=== PATIENT | male | born 1975 | race Caucasian/White ===

== ENCOUNTER 2017-02-09 07:21 | Inpatient (IN) | payer SELFPAY ==
[~2017-02-09] VITALS: Ht 185.4 cm; Wt 72.7 kg
[2017-02-09] MEDS ORDERED: SOD CHLORIDE 0.9% 1,000 ML IV STA (07:26)
[2017-02-09] MEDS ORDERED: ONDANSETRON 4 MG INJ IV STA ×2 (07:26→10:47)
[2017-02-09] MEDS ORDERED: KETOROLAC 30 MG INJ IV STA (07:26)
--- NOTE | 2017-02-09 07:34 | ERA ---
ER Documentation Chief Complaint Date/Time DATE: 02/09/17 TIME: 07:32 Chief Complaint kidney stone HPI This is a 41-year-old male with a past medical history of kidney stones sp lithotripsy in the past who is presenting with concern of a kidney stone. He developed hematuria last night, and then developed severe right sided flank pain radiating into his groin, associated with NBNB vomiting. He endorses an episode of diarrhea 2 days ago that has since resolved. He went to an urgent care who prescribed him lomotil and cipro. He was diaphoretic upon arrival. The patient denies feeling sick otherwise. The patient denies fever or chills. The patient has had no headache or vision changes. The patient denies lightheadedness or dizziness. The patient has had no chest pain or shortness of breath or trouble breathing. The patient has had no focal deficits. The patient has had no weakness or numbness or tingling to the face or extremities. ROS All systems reviewed and are negative except as per history of present illness. Medications Home Meds Reported Medications Diphenoxylate HCl/Atropine (Lomotil 2.5-0.025 mg Tablet) 1 Each Tablet, 1 TAB PO Q6H Y for DIARRHEA, TAB 02/09/17 Ciprofloxacin Hcl* (Ciprofloxacin Hcl*) 500 Mg Tablet, 500 MG PO BID, #14 TAB 02/09/17 Allergies Allergies: Coded Allergies: No Known Allergy (Unverified , 02/09- PER [facility]ALL, 02/09/17) PMhx/Soc Hx Miscellaneous Medical Probl: Yes (kidney stones) FmHx Family History: No diabetes Physical Exam Vitals Vital Signs Date Time Temp Pulse Resp B/P Pulse Ox O2 Delivery O2 Flow Rate FiO2 02/09/17 10:18 66 13 120/80 93 Room Air 02/09/17 08:15 98.2 89 27 113/74 100 02/09/17 08:15 98.2 89 27 113/74 100 Room Air Physical Exam Const: mild distress, well-developed, well-nourished, diaphoretic Head: Atraumatic Eyes: Normal Conjunctiva. Extraocular movements intact. ENT: Normal External Ears, Nose and Mouth. Neck: Full range of motion. ~ No meningismus. Resp: Clear to auscultation bilaterally Cardio: Regular rate and rhythm, no murmurs Abd: Soft, non tender, non distended. right CVA tenderness. Normal bowel sounds Skin: No petechiae or rashes Back: No midline tenderness Ext: No cyanosis, or edema Neur: Awake and alert, oriented 4. Cranial nerves intact. No facial droop. Normal strength and sensation in all extremities. Coordination with finger to nose normal. Psych: Normal Mood and Affect Result Diagram: 02/09/17 0744 02/09/17 0744 Results 24 hrs Laboratory Tests Test 02/09/17 07:44 02/09/17 08:59 White Blood Count 7.310^3/ul Red Blood Count 4.8810^6/ul Hemoglobin 15.0g/dl Hematocrit 43.8% Mean Corpuscular Volume 89.8fl Mean Corpuscular Hemoglobin 30.7pg Mean Corpuscular Hemoglobin Concent 34.2g/dl Red Cell Distribution Width 12.4% Platelet Count 22433^3/UL Mean Platelet Volume 10.0fl Neutrophils % 46.2% Lymphocytes % 40.8% Monocytes % 9.0% Eosinophils % 3.1% Basophils % 0.5% Nucleated Red Blood Cells % 0.0/100WBC Neutrophils # 3.410^3/ul Lymphocytes # 3.010^3/ul Monocytes # 0.710^3/ul Eosinophils # 0.210^3/ul Basophils # 0.010^3/ul Nucleated Red Blood Cells # 0.010^3/ul Sodium Level 139mmol/L Potassium Level 3.8mmol/L Chloride Level 107mmol/L Carbon Dioxide Level 21mmol/L Anion Gap 15 Blood Urea Nitrogen 16mg/dl Creatinine 1.10mg/dl Glucose Level 117mg/dl Calcium Level 9.8mg/dl Total Bilirubin 0.5mg/dl Direct Bilirubin 0.00mg/dl Indirect Bilirubin 0.5mg/dl Aspartate Amino Transf (AST/SGOT) 23IU/L Alanine Aminotransferase (ALT/SGPT) 30IU/L Alkaline Phosphatase 73IU/L Total Protein 7.0g/dl Albumin 4.4g/dl Globulin 2.60g/dl Albumin/Globulin Ratio 1.69 Lipase 810U/L Urine Color YELLOW Urine Clarity SLIGHTLY CLOUDY Urine pH 6.0 Urine Specific [place] 1.018 Urine Ketones TRACEmg/dL Urine Nitrite NEGATIVEmg/dL Urine Bilirubin NEGATIVEmg/dL Urine Urobilinogen NEGATIVEmg/dL Urine Leukocyte Esterase NEGATIVELeu/ul Urine Microscopic RBC > 182/HPF Urine Microscopic WBC 7/HPF Urine Bacteria FEW/HPF Urine Mucus FEW/HPF Urine Hemoglobin 3+mg/dL Urine Glucose NEGATIVEmg/dL Urine Total Protein 1+mg/dl Current Medications Medications (Trade) Dose Ordered Sig/Nataliia Route PRN Reason Start Time Stop Time Status Last Admin Dose Admin Sodium Chloride (NS) 1,000 ml @ 1,000 mls/hr Q1H STAT IV 02/09/17 07:26 02/09/17 08:25 DC 02/09/17 07:40 Ondansetron HCl (Zofran Inj) 4 mg ONCE STAT IV 02/09/17 07:26 02/09/17 07:28 DC 02/09/17 07:40 Ketorolac Tromethamine (Toradol) 30 mg ONCE STAT IV 02/09/17 07:26 02/09/17 07:28 DC 02/09/17 07:40 Fentanyl (Sublimaze) 100 mcg STK-MED ONCE .ROUTE 02/09/17 09:35 02/09/17 09:36 DC Fentanyl (Sublimaze) 75 mcg Q3H PRN IV PAIN 02/09/17 10:00 02/09/17 13:00 DC Ondansetron HCl (Zofran Inj) 4 mg ONCE STAT IV 02/09/17 10:47 02/09/17 10:49 DC 02/09/17 11:12 Hydromorphone HCl 0.5 mg 0.5 mg ONCE STAT IV 02/09/17 10:47 02/09/17 10:49 DC 02/09/17 11:12 Sodium Chloride (NS) 1,000 ml @ 80 mls/hr [id number] IV 02/09/17 12:53 02/10/17 01:22 02/09/17 13:21 Procedures/MDM MDM Patient's presentation warrants further investigation. The patient has a history of kidney stones and has symptoms consistent with a kidney stone. Blood work and urine testing will be obtained. The patient was given IV fluids and Toradol on initial presentation. LABS The patient's blood work was obtained and reviewed. The patient seemed shows no leukocytosis or left shift. The patient is afebrile, and I do not suspect a systemic infection. The patient is not anemic today. The patient's platelet count is unremarkable. The patient's CMP shows no signs of metabolic or electrolyte abnormality. The patient has normal renal and hepatic function testing. It is worth noting that the patient's lipase was 810. The patient did not have any left upper quadrant tenderness. The patient will be given IV fluids with the concern of a kidney stone. This will also help improve pain related to pancreatitis. The patient's urinalysis shows significant hematuria that is consistent with a kidney stone, which also correlates with his clinical exam. IMAGING CT A/P without contrast IMPRESSION: 1. Moderate to severe right hydronephrosis secondary to a 4 mm calculus in the mid right ureter at the level of L4. 2. A punctate 2 mm nonobstructing intrarenal calculus is seen in the inferior right kidney. 3. Stool is seen in the ascending colon and rectum. 4. A small gallstone is seen within an otherwise unremarkable gallbladder. Electronically viewed and signed by Physician Ron on 02/09/2017 11: 56 TREATMENT/DISPOSITION The patient does have symptoms consistent with obstructive nephrolithiasis. I do not see signs of infection at this time. Unfortunately, the patient had intractable pain associated with this. After Toradol, he was given fentanyl and ultimately he was given 2 doses of Dilaudid which only provided temporary relief. IV fluids will be continued in this patient. The patient does have an elevated lipase. He was also found to have gallstones on his CAT scan. There is no evidence of cholecystitis, but biliary colic may also be a possibility. If the patient does have choledocholithiasis, there could be a gallstone pancreatitis as well. I have lower suspicion for these etiologies given the findings for nephrolithiasis. The patient will be admitted to the panel service as per his insurance status. Dr. Hummel accepted the patient to a [facility] floor at 12:49 PM on February 09, 2017 Dr. Dias, the on-call urologist, was called to discuss the case. He will evaluate the patient in the hospital. Departure Diagnosis: Primary Impression: Obstructive nephropathy Additional Impressions: Hydronephrosis Qualified Code: N13.2 - Hydronephrosis with urinary obstruction due to renal calculus Pancreatitis Qualified Code: K85.90 - Acute pancreatitis, unspecified complication status, unspecified pancreatitis type Gall bladder stones Condition: SEAN Leyva MD Feb 09, 2017 07:34
[2017-02-09 08:01] LABS: BASOPHILS % 0.5 % (0.0-2.0); EOSINOPHILS # 0.2 10^3/ul (0.0-0.5); EOSINOPHILS % 3.1 % (0.0-7.0); HEMATOCRIT 43.8 % (42.0-52.0); LYMPHOCYTES % 40.8 % (15.0-51.0); MEAN CORPUSCULAR HEMOGLOBIN 30.7 pg (29.0-33.0); MEAN CORPUSCULAR HGB CONC 34.2 g/dl (32.0-37.0); MEAN CORPUSCULAR VOLUME 89.8 fl (82.0-101.0); MONOCYTE # 0.7 10^3/ul (0.3-0.9); NEUTROPHIL # 3.4 10^3/ul (1.6-7.5); NEUTROPHILS % 46.2 % (39.0-77.0); PLATELET COUNT 300 10^3/UL (140-415); RED BLOOD COUNT 4.88 10^6/ul (4.70-6.10); RED CELL DISTRIBUTION WIDTH 12.4 % (11.5-14.5); WHITE BLOOD COUNT 7.3 10^3/ul (4.8-10.8)
[2017-02-09 08:15] VITALS: TEMP 98.2
[2017-02-09 08:25] LABS: ALBUMIN 4.4 g/dl (3.3-4.9); ALBUMIN/GLOBULIN RATIO 1.69; BILIRUBIN,INDIRECT 0.5 mg/dl (0-1.1); BILIRUBIN,TOTAL 0.5 mg/dl (0.2-1.3); CALCIUM 9.8 mg/dl (8.4-10.2); CREATININE 1.1 mg/dl (0.61-1.24); POTASSIUM 3.8 mmol/L (3.5-5.1)
[2017-02-09] MEDS ORDERED: FENTAnyl 50 MCG/ML VIAL ONE (09:35)
[2017-02-09] MEDS ORDERED: FENTAnyl 50 MCG/ML VIAL IV PRN (10:00)
[2017-02-09 10:19] LABS: ADD UMIC YES; UR ASCORBIC ACID NEGATIVE (NEGATIVE); UR BACTERIA FEW /HPF (NONE SEEN); UR BILIRUBIN (Dip) NEGATIVE (NEGATIVE); UR BLOOD (Dip) 3+ mg/dL (NEGATIVE); UR CLARITY SLIGHTLY CLOUDY (CLEAR); UR COLOR YELLOW (YELLOW); UR GLUCOSE (Dip) NEGATIVE (NEGATIVE); UR KETONES (Dip) TRACE mg/dL (NEGATIVE); UR LEUKOCYTE ESTERASE (Dip) NEGATIVE Leu/ul (NEGATIVE); UR MUCUS FEW /HPF (NONE SEEN); UR NITRITE (Dip) NEGATIVE (NEGATIVE); UR RBC > 182 /HPF (0-5); UR SPECIFIC GRAVITY (Dip) 1.018 (1.003-1.030); UR TOTAL PROTEIN (Dip) 1+ mg/dl (NEGATIVE); UR UROBILINOGEN (Dip) NEGATIVE (NEGATIVE)
[2017-02-09] MEDS ORDERED: HYDROmorphONE 1 MG/ML SYG IV STA ×3 (10:47→13:09)
--- NOTE | 2017-02-09 11:56 | RADRPT ---
PROCEDURE: CT abdomen and pelvis without contrast. CLINICAL INDICATION: R flank and RLQ pain with gross hematuria TECHNIQUE: CT scan of the abdomen and pelvis without contrast was performed on a multi-slice CT [facility]. The patient was scanned without intravenous contrast. 3-D sagittal and coronal reformatted images were obtained from the axial source images. CTDI: 6.43 and DLP: 379.6 One or more of the following dose reduction techniques were used: Automated exposure control. Adjustment of the mA and/or kV according to patient's size. Use of iterative reconstruction technique. COMPARISON: None. FINDINGS: Incidental images through the lung bases reveal no evidence of focal basilar consolidation or pleura l effusion. The liver, spleen, pancreas and adrenal glands are unremarkable for noncontrast study. A small galls tone is seen within an otherwise unremarkable gallbladder. There is moderate to severe right hydronephrosis secondary to a 4 mm calculus in the mid right urete r at the level of L4. A punctate 2 mm nonobstructing calculus is seen in the inferior right kidney. The left kidney is unremarkable. No significant retroperitoneal adenopathy is identified. The abdominal aorta is intact. The stomach is grossly unremarkable. There is no evidence of small bowel obstruction, appendicitis o r diverticulitis. Stool is seen in the ascending colon and rectum.. No free fluid or free intraperi toneal air is identified. Evaluation of the osseous structures reveals no acute change. IMPRESSION: 1. Moderate to severe right hydronephrosis secondary to a 4 mm calculus in the mid right ureter at the level of L4. 2. A punctate 2 mm nonobstructing intrarenal calculus is seen in the inferior right kidney. 3. Stool is seen in the ascending colon and rectum. 4. A small gallstone is seen within an otherwise unremarkable gallbladder. RPTAT:AAJJ Physician Ron Date Time Electronically viewed and signed by Physician Ron on 02/09/2017 11:56 MARY BETH/
[2017-02-09] MEDS ORDERED: CIPR500T4 PO (12:08)
[2017-02-09] MEDS ORDERED: DIPH1TAB PO (12:08)
[2017-02-09] MEDS ORDERED: SOD CHLORIDE 0.9% 1,000 ML IV SCH (12:53)
[2017-02-09] MEDS ORDERED: ONDANSETRON 4 MG INJ IV PRN (13:00)
[2017-02-09] MEDS ORDERED: ACETAMINOPHEN 325 MG TAB PO PRN (13:00)
[2017-02-09 14:27] VITALS: Ht 185.4 cm; Wt 72.7 kg
[2017-02-09] MEDS ORDERED: TAMSULOSIN (SR) 0.4 MG CAP PO ONE (15:00)
[2017-02-09] MEDS: SOD CHLORIDE 0.9% 1,000 ML IV SCH ×2 (15:00→20:52)
[2017-02-09] MEDS ORDERED: NACL 0.9% 3 ML SYG IV SCH (15:00)
[2017-02-09 15:34] LABS: CHOL/HDL RATIO 1.7 RATIO; CHOLESTEROL 185 mg/dl (100-200); HDL CHOLESTEROL 105 mg/dl (27-67); TRIGLYCERIDES 80 mg/dl (0-149)
[2017-02-09 15:53] LABS: C-REACTIVE PROTEIN < 0.5 mg/dl (0.0-0.9)
[2017-02-09] MEDS ORDERED: LORAZEPAM 1 MG TAB PO PRN (16:00)
[2017-02-09] MEDS ORDERED: LORAZEPAM 2 MG INJ IV PRN (16:00)
--- NOTE | 2017-02-09 16:02 | HP ---
Date/Time of Note Date/Time of Note DATE: 02/09/17 TIME: 15:55 Assessment/Plan VTE Prophylaxis VTE Prophylaxis Intervention: LMWH Lines/Catheters IV C[facility]ter Type [facility]): Peripheral IV Assessment/Plan Chief Complaint/Hosp Course Patient is a 41-year-old male with a past medical history of kidney stones presents to [facility] for right flank pain found to have 4 mm obstructing kidney stone and 2 mm nonobstructing kidney stone Assessment Obstructing nephrolithiasis, 4 mm Nonobstructing nephrolithiasis, 2 mm Hematuria Right flank pain Tobacco use elevated lipase Plan -Urology has been consulted, spoke to urologist over the phone, stated to allow stone to pass for now, if pain worsens intervention will be done. -Flomax, copious fluids, pain control -Urology stated no follow-up imaging is necessary -Patient is pain-free, strainer will be available at bedside -Patient did have elevated lipase, however no signs or symptoms of pancreatitis , however will be conservative and continue fluids and obtain CRP, will trend, will start with clears diet for now. Problems: HPI/ROS Admit Date/Time Admit Date/Time Feb 09, 2017 at 12:55 Hx of Present Illness Patient is a 41-year-old male with a past medical history of kidney stones who presents to [facility] for right flank pain, found to have obstructing kidney stone in the right ureter. Patient states that he was urinating blood last night and developed severe right-sided flank pain with nausea and vomiting. Patient states that the pain continued which is why he came to the ED. Patient has a history of kidney stones with lithotripsy in the past. Currently patient is pain-free, denies fever, chills, headache, dizziness , chest pain, shortness of breath. PMH: Kidney stones PSH: None Social: Smoker, daily alcohol, marijuana use Meds: None PMH/Family/Social Social History Smoking Status: Current every day smoker Exam/Review of Systems Vital Signs Vitals Vital Signs Date Time Temp Pulse Resp B/P Pulse Ox O2 Delivery O2 Flow Rate FiO2 02/09/17 13:34 67 118/89 96 Room Air 02/09/17 10:18 13 02/09/17 08:15 98.2 Exam Exam Physical exam General: Patient is laying in bed and answers questions appropriately Mentation: Patient is alert and oriented 4, Head: Normocephalic atraumatic Eyes: EOMI, pupils reactive to light Neck: Supple, nontender, midline Respiratory: Clear to auscultation bilaterally Cardiovascular: regular rate, no obvious murmurs Gastrointestinal: non-tender to palpation, bowel sounds heard. : very mild tenderness on R flank Neurological: Moves all extremities spontaneously Skin: No new skin lesions Labs Result Diagram: 02/09/17 0744 02/09/17 0744 Medications Medications Current Medications Sodium Chloride (NS) 1,000 ml @ 80 mls/hr [id number] IV Last administered on 02/09t 13:21; Admin Dose 80 MLS/HR; Start 02/09/17 at 12:53; Stop 02/10/17 at 01: 22 Tamsulosin HCl 0.4 mg 0.4 mg HS PO ; Start 02/10/17 at 21:00 Sodium Chloride (NS) 1,000 ml @ 150 mls/hr Q6H40M IV ; Start 02/09/17 at 15:00 Ondansetron HCl (Zofran Inj) 4 mg Q6H PRN IV NAUSEA AND/OR VOMITING; Start at 15:00 Hydromorphone HCl (Dilaudid) 0.5 mg Q2 PRN IV SEVERE PAIN LEVEL 7-10; Start at 15:00 Pantoprazole (Protonix Iv) 40 mg DAILY@06 IV ; Start 02/10/17 at 06:00 Enoxaparin Sodium (Lovenox) 40 mg DAILY SC ; Start 02/10/17 at 09:00 BRIGETTE RUSS Feb 09, 2017 16:02
[2017-02-09 19:47] VITALS: BP 115/70; PULSE 70; RESP 18
[2017-02-09] MEDS: HYDROmorphONE 1 MG/ML SYG IV PRN (23:20)
[2017-02-10] MEDS: SOD CHLORIDE 0.9% 1,000 ML IV SCH ×4 (03:11→21:17)
[2017-02-10] MEDS: HYDROmorphONE 1 MG/ML SYG IV PRN ×6 (03:11→21:16)
[2017-02-10] MEDS: PANTOPRAZOLE 40 MG INJ IV SCH (05:06)
[2017-02-10 05:11] LABS: BASOPHILS % 0.3 % (0.0-2.0); EOSINOPHILS # 0.2 10^3/ul (0.0-0.5); EOSINOPHILS % 2.1 % (0.0-7.0); HEMATOCRIT 36.3 % (42.0-52.0); HEMOGLOBIN 12.1 g/dl (14.0-18.0); LYMPHOCYTES # 2.2 10^3/ul (0.8-2.9); LYMPHOCYTES % 29.4 % (15.0-51.0); MEAN CORPUSCULAR HEMOGLOBIN 31.2 pg (29.0-33.0); MEAN CORPUSCULAR HGB CONC 33.3 g/dl (32.0-37.0); MEAN CORPUSCULAR VOLUME 93.6 fl (82.0-101.0); MONOCYTE # 0.6 10^3/ul (0.3-0.9); NEUTROPHIL # 4.5 10^3/ul (1.6-7.5); NEUTROPHILS % 60.1 % (39.0-77.0); PLATELET COUNT 188 10^3/UL (140-415); RED BLOOD COUNT 3.88 10^6/ul (4.70-6.10); RED CELL DISTRIBUTION WIDTH 12.5 % (11.5-14.5); WHITE BLOOD COUNT 7.5 10^3/ul (4.8-10.8)
[2017-02-10 05:47] LABS: ALBUMIN/GLOBULIN RATIO 1.11; BILIRUBIN,INDIRECT 0.5 mg/dl (0-1.1); BILIRUBIN,TOTAL 0.5 mg/dl (0.2-1.3); CALCIUM 8.6 mg/dl (8.4-10.2); CREATININE 1.51 mg/dl (0.61-1.24); POTASSIUM 4.2 mmol/L (3.5-5.1); TOTAL PROTEIN 5.7 g/dl (6.1-8.1)
[2017-02-10 07:29] VITALS: BP 125/82; RESP 22
[2017-02-10] MEDS ORDERED: ENOXAPARIN 40 MG/0.4 ML SYG SC SCH (09:00)
[2017-02-10] MEDS: ONDANSETRON 4 MG INJ IV PRN ×2 (09:14→14:28)
[2017-02-10] MEDS: oxyCODONE 5 MG TAB PO PRN ×3 (10:13→23:49)
--- NOTE | 2017-02-10 12:28 | PN ---
Date/Time of Note Date/Time of Note DATE: 02/10/17 TIME: 12:25 Assessment/Plan VTE Prophylaxis VTE Prophylaxis Intervention: SCD's Lines/Catheters IV [facility]ter Type (from [facility]): Peripheral IV Urinary Cath still in place: No Assessment/Plan Chief Complaint/Hosp Course Patient is a 41-year-old male with a past medical history of kidney stones presents to [facility] for right flank pain found to have 4 mm obstructing kidney stone and 2 mm nonobstructing kidney stone Assessment Obstructing nephrolithiasis, 4 mm Nonobstructing nephrolithiasis, 2 mm Hematuria Right flank pain Tobacco use elevated lipase Plan -Urology has been consulted, originally wanted to conservatively treat, however due to increase in patient's pain, urology will consider lithotripsy tomorrow if pain continues. Pain likely 2/2 to volume hydration and stone passing. -JONATHAN, likely 2/2 stone however will watch and consult nephrology -Flomax, copious fluids, pain control -Urology stated no follow-up imaging is necessary, will monitor. -Patient has strainer available at bedside -Patient did have elevated lipase, however no signs or symptoms of pancreatitis , CRP negative for 2 days. Problems: Subjective 24 Hr Interval Summary Free Text/Dictation patient has severe pain on the R flank, moving around since last night. Exam/Review of Systems Vital Signs Vitals Vital Signs Date Time Temp Pulse Resp B/P Pulse Ox O2 Delivery O2 Flow Rate FiO2 02/10/17 07:29 98.1 77 22 125/82 99 02/09/17 19:47 Room Air Intake and Output 02/09/17 02/09/17 02/10/17 15:00 23:00 07:00 Intake Total 3000 ml 1360 ml 2300 ml Output Total 300 ml 350 ml 1800 ml Balance 2700 ml 1010 ml 500 ml Exam Physical exam General: Patient is moving around in bed, in pain Mentation: Patient is alert and oriented 4, Head: Normocephalic atraumatic Eyes: EOMI, pupils reactive to light Neck: Supple, nontender, midline Respiratory: Clear to auscultation bilaterally Cardiovascular: regular rate, no obvious murmurs Gastrointestinal: non-tender to palpation, bowel sounds heard. : tenderness on R flank Neurological: Moves all extremities spontaneously Skin: No new skin lesions Results Result Diagram: 02/10/17 0448 02/10/17 0448 Results 24 hrs Laboratory Tests Test 02/10/17 04:48 White Blood Count 7.5 Red Blood Count 3.88 #L Hemoglobin 12.1 L Hematocrit 36.3 L Mean Corpuscular Volume 93.6 Mean Corpuscular Hemoglobin 31.2 Mean Corpuscular Hemoglobin Concent 33.3 Red Cell Distribution Width 12.5 Platelet Count 188 # Mean Platelet Volume 10.0 Neutrophils % 60.1 Lymphocytes % 29.4 Monocytes % 8.0 Eosinophils % 2.1 Basophils % 0.3 Nucleated Red Blood Cells % 0.0 Neutrophils # 4.5 Lymphocytes # 2.2 Monocytes # 0.6 Eosinophils # 0.2 Basophils # 0.0 Nucleated Red Blood Cells # 0.0 Sodium Level 137 Potassium Level 4.2 Chloride Level 109 Carbon Dioxide Level 24 Anion Gap 8 Blood Urea Nitrogen 14 Creatinine 1.51 H Glucose Level 89 Calcium Level 8.6 Total Bilirubin 0.5 Direct Bilirubin 0.00 Indirect Bilirubin 0.5 Aspartate Amino Transf (AST/SGOT) 23 Alanine Aminotransferase (ALT/SGPT) 28 Alkaline Phosphatase 45 C-Reactive Protein < 0.5 Total Protein 5.7 #L Albumin 3.0 #L Globulin 2.70 Albumin/Globulin Ratio 1.11 Medications Medications Current Medications Tamsulosin HCl 0.4 mg 0.4 mg HS PO ; Start 02/10/17 at 21:00 Sodium Chloride (NS) 1,000 ml @ 150 mls/hr Q6H40M IV Last administered on 02/10 09:13; Admin Dose 150 MLS/HR; Start 02/09/17 at 15:00 Ondansetron HCl (Zofran Inj) 4 mg Q6H PRN IV NAUSEA AND/OR VOMITING Last administered on 02/10/17 09:14; Admin Dose 4 MG; Start 02/09/17 at 15:00 Pantoprazole (Protonix Iv) 40 mg DAILY@06 IV Last administered on 02/10/17 05: 06; Admin Dose 40 MG; Start 02/10/17 at 06:00 Lorazepam (Ativan) 1 mg Q8H PRN PO ANXIETY Last administered on 02/10/17 08:04 ; Admin Dose 1 MG; Start 02/09/17 at 16:00 Lorazepam (Ativan) 2 mg Q10MIN PRN IV seizure; Start 02/09/17 at 16:00 Hydromorphone HCl (Dilaudid) 1 mg Q2 PRN IV SEVERE PAIN LEVEL 7-10; Start 02/10 at 09:30 Oxycodone HCl (Roxicodone) 10 mg Q4H PRN PO PAIN Last administered on t 10:13; Admin Dose 10 MG; Start 02/10/17 at 09:30 BRIGETTE RUSS Feb 10, 2017 12:28
--- NOTE | 2017-02-10 12:45 | PN ---
Date/Time of Note Date/Time of Note DATE: 02/10/17 TIME: 12:43 Assessment/Plan VTE Prophylaxis VTE Prophylaxis Intervention: other Assessment/Plan Assessment/Plan ureteric colic r hydroureter arf sec to above cont ivf d/w pt at length will f/u Subjective 24 Hr Interval Summary Genitourinary: flank pain Exam/Review of Systems Vital Signs Vitals Vital Signs Date Time Temp Pulse Resp B/P Pulse Ox O2 Delivery O2 Flow Rate FiO2 02/10/17 07:29 98.1 77 22 125/82 99 02/09/17 19:47 Room Air Intake and Output 02/09/17 02/09/17 02/10/17 15:00 23:00 07:00 Intake Total 3000 ml 1360 ml 2300 ml Output Total 300 ml 350 ml 1800 ml Balance 2700 ml 1010 ml 500 ml Exam Constitutional: alert, oriented, well developed Psych: nl mood/affect, no complaints Head: atraumatic, normocephalic Eyes: EOMI, nl conjunctiva ENMT: mucosa pink and moist, nl external ears & nose, nl lips & teeth, nl nasal mucosa & septum Neck: non-tender, supple Respiratory: clear to auscultation, normal air movement Cardiovascular: regular rate and rhythm Gastrointestinal: nl liver, spleen, non-tender, soft Genitourinary - Male: nl penis, nl scrotum Musculoskeletal: nl extremities to inspection, nl gait and stance Extremities: normal pulses 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, nl mental status Results Result Diagram: 02/10/178 02/10/17 0448 Results 24 hrs Laboratory Tests Test 02/10/17 04:48 White Blood Count 7.5 Red Blood Count 3.88 #L Hemoglobin 12.1 L Hematocrit 36.3 L Mean Corpuscular Volume 93.6 Mean Corpuscular Hemoglobin 31.2 Mean Corpuscular Hemoglobin Concent 33.3 Red Cell Distribution Width 12.5 Platelet Count 188 # Mean Platelet Volume 10.0 Neutrophils % 60.1 Lymphocytes % 29.4 Monocytes % 8.0 Eosinophils % 2.1 Basophils % 0.3 Nucleated Red Blood Cells % 0.0 Neutrophils # 4.5 Lymphocytes # 2.2 Monocytes # 0.6 Eosinophils # 0.2 Basophils # 0.0 Nucleated Red Blood Cells # 0.0 Sodium Level 137 Potassium Level 4.2 Chloride Level 109 Carbon Dioxide Level 24 Anion Gap 8 Blood Urea Nitrogen 14 Creatinine 1.51 H Glucose Level 89 Calcium Level 8.6 Total Bilirubin 0.5 Direct Bilirubin 0.00 Indirect Bilirubin 0.5 Aspartate Amino Transf (AST/SGOT) 23 Alanine Aminotransferase (ALT/SGPT) 28 Alkaline Phosphatase 45 C-Reactive Protein < 0.5 Total Protein 5.7 #L Albumin 3.0 #L Globulin 2.70 Albumin/Globulin Ratio 1.11 Medications Medications Current Medications Tamsulosin HCl 0.4 mg 0.4 mg HS PO ; Start 02/10/17 at 21:00 Sodium Chloride (NS) 1,000 ml @ 150 mls/hr Q6H40M IV Last administered on 02/10 09:13; Admin Dose 150 MLS/HR; Start 02/09/17 at 15:00 Ondansetron HCl (Zofran Inj) 4 mg Q6H PRN IV NAUSEA AND/OR VOMITING Last administered on 02/10/17 09:14; Admin Dose 4 MG; Start 02/09/17 at 15:00 Pantoprazole (Protonix Iv) 40 mg DAILY@06 IV Last administered on 02/10/17 05: 06; Admin Dose 40 MG; Start 02/10/17 at 06:00 Lorazepam (Ativan) 1 mg Q8H PRN PO ANXIETY Last administered on 02/10/17 08:04 ; Admin Dose 1 MG; Start 02/09/17 at 16:00 Lorazepam (Ativan) 2 mg Q10MIN PRN IV seizure; Start 02/09/17 at 16:00 Hydromorphone HCl (Dilaudid) 1 mg Q2 PRN IV SEVERE PAIN LEVEL 7-10; Start 02/10 at 09:30 Oxycodone HCl (Roxicodone) 10 mg Q4H PRN PO PAIN Last administered on 10:13; Admin Dose 10 MG; Start 02/10/17 at 09:30 ELBA GOMEZ MD Feb 10, 2017 12:45
[2017-02-10 16:12] VITALS: BP 113/77; RESP 20
[2017-02-10] MEDS: ACETAMINOPHEN 325 MG TAB PO PRN (16:48)
[2017-02-10 19:35] VITALS: BP 124/67; RESP 20
[2017-02-10] MEDS ORDERED: TAMSULOSIN (SR) 0.4 MG CAP PO SCH (21:00)
[2017-02-11] MEDS: HYDROmorphONE 1 MG/ML SYG IV PRN (00:43)
[2017-02-11 02:41] VITALS: BP 123/74; RESP 18
[2017-02-11] MEDS ORDERED: DIPHENHYDRAMINE 25 MG CAP PO PRN (03:00)
[2017-02-11] MEDS: ACETAMINOPHEN 325 MG TAB PO PRN ×2 (04:57→09:06)
[2017-02-11] MEDS: SOD CHLORIDE 0.9% 1,000 ML IV SCH (04:58)
[2017-02-11] MEDS: PANTOPRAZOLE 40 MG INJ IV SCH (04:59)
[2017-02-11 05:14] LABS: BASOPHILS % 0.4 % (0.0-2.0); EOSINOPHILS # 0.1 10^3/ul (0.0-0.5); EOSINOPHILS % 1.5 % (0.0-7.0); HEMATOCRIT 34.4 % (42.0-52.0); HEMOGLOBIN 11.9 g/dl (14.0-18.0); LYMPHOCYTES # 1.7 10^3/ul (0.8-2.9); LYMPHOCYTES % 22.1 % (15.0-51.0); MEAN CORPUSCULAR HGB CONC 34.6 g/dl (32.0-37.0); MEAN CORPUSCULAR VOLUME 92.5 fl (82.0-101.0); MEAN PLATELET VOLUME 10.1 fl (7.4-10.4); MONOCYTE # 0.9 10^3/ul (0.3-0.9); MONOCYTES % 12.1 % (0.0-11.0); NEUTROPHIL # 4.8 10^3/ul (1.6-7.5); NEUTROPHILS % 63.6 % (39.0-77.0); PLATELET COUNT 185 10^3/UL (140-415); RED BLOOD COUNT 3.72 10^6/ul (4.70-6.10); WHITE BLOOD COUNT 7.5 10^3/ul (4.8-10.8)
[2017-02-11 05:36] LABS: CALCIUM 9.1 mg/dl (8.4-10.2); CREATININE 0.98 mg/dl (0.61-1.24); MAGNESIUM 1.8 mg/dl (1.7-2.5); PHOSPHORUS 3.3 mg/dl (2.5-4.9); POTASSIUM 4.4 mmol/L (3.5-5.1)
[2017-02-11 07:55] VITALS: BP 116/67; RESP 19
--- NOTE | 2017-02-11 09:29 | PN ---
Date/Time of Note Date/Time of Note DATE: 02/11/17 TIME: 09:24 Assessment/Plan VTE Prophylaxis VTE Prophylaxis Intervention: ambulation Lines/Catheters IV Catheter Type (from Nrsg): Peripheral IV Assessment/Plan Assessment/Plan 1. Obstructing nephrolithiasis, 4 mm - Patient passed last night and feeling better. States has slight residual pain in R CVA area. - Cleared by urology for discharge home 2. Nonobstructing nephrolithiasis, 2 mm - Advised to keep well hydrated and if pain returns, call PCP or come to ED 3. Hematuria - Resolved 4. Right flank pain - will give a couple days of pain control upon discharge 5. Tobacco use - counseled about smoking cessation 6. elevated lipase - no signs or symptoms of pancreatitis, CRP negative for 2 days. 7. JONATHAN - resolved 8. Disposition - Cleared for discharge home by urology Subjective 24 Hr Interval Summary Free Text/Dictation Patient doing well and passed the stone last night. Has slight residual pain in right groin but denies any fevers, chills, nausea, vomiting, or worsening abdominal pain. Exam/Review of Systems Vital Signs Vitals Vital Signs Date Time Temp Pulse Resp B/P Pulse Ox O2 Delivery O2 Flow Rate FiO2 02/11/17 07:55 98.0 62 19 116/67 98 02/09/17 19:47 Room Air Intake and Output 02/10/17 02/10/17 02/11/17 15:00 23:00 07:00 Intake Total 2300 ml 2500 ml Output Total 2500 ml Balance 2300 ml 0 ml Exam General- NAD, pleasant, awake and alert CVS- S1, S2, RRR, no murmurs Lungs- CTA b/l, no wheezes, rhonchi Abd- soft, NT, ND, no rebound or guarding. + right CVA tenderness- improving Ext- no edema, cyanosis, or clubbing Results Result Diagram: 02/11/17 0444 02/11/17443 Results 24 hrs Laboratory Tests Test 02/11/17 04:44 White Blood Count 7.5 Red Blood Count 3.72 L Hemoglobin 11.9 L Hematocrit 34.4 L Mean Corpuscular Volume 92.5 Mean Corpuscular Hemoglobin 32.0 Mean Corpuscular Hemoglobin Concent 34.6 Red Cell Distribution Width 12.0 Platelet Count 185 Mean Platelet Volume 10.1 Neutrophils % 63.6 Lymphocytes % 22.1 Monocytes % 12.1 H Eosinophils % 1.5 Basophils % 0.4 Nucleated Red Blood Cells % 0.0 Neutrophils # 4.8 Lymphocytes # 1.7 Monocytes # 0.9 Eosinophils # 0.1 Basophils # 0.0 Nucleated Red Blood Cells # 0.0 Sodium Level 136 Potassium Level 4.4 Chloride Level 108 Carbon Dioxide Level 24 Anion Gap 8 Blood Urea Nitrogen 7 Creatinine 0.98 Glucose Level 86 Calcium Level 9.1 Phosphorus Level 3.3 Magnesium Level 1.8 Medications Medications Current Medications Tamsulosin HCl 0.4 mg 0.4 mg HS PO Last administered on 02/10/17 20:47; Admin Dose 0.4 MG; Start 02/10/17 at 21:00 Sodium Chloride (NS) 1,000 ml @ 150 mls/hr Q6H40M IV Last administered on 02/11 04:58; Admin Dose 150 MLS/HR; Start 02/09/17 at 15:00 Ondansetron HCl (Zofran Inj) 4 mg Q6H PRN IV NAUSEA AND/OR VOMITING Last administered on 02/10/17 14:28; Admin Dose 4 MG; Start 02/09/17 at 15:00 Pantoprazole (Protonix Iv) 40 mg DAILY@06 IV Last administered on 02/11/17 04: 59; Admin Dose 40 MG; Start 02/10/17 at 06:00 Lorazepam (Ativan) 1 mg Q8H PRN PO ANXIETY Last administered on 02/10/17 08:04 ; Admin Dose 1 MG; Start 02/09/17 at 16:00 Lorazepam (Ativan) 2 mg Q10MIN PRN IV seizure; Start 02/09/17 at 16:00 Hydromorphone HCl (Dilaudid) 1 mg Q2 PRN IV SEVERE PAIN LEVEL 7-10 Last administered on 02/11/17 00:43; Admin Dose 1 MG; Start 02/10/17 at 09:30 Oxycodone HCl (Roxicodone) 10 mg Q4H PRN PO PAIN Last administered on 23:49; Admin Dose 10 MG; Start 02/10/17 at 09:30 Acetaminophen (Tylenol Tab) 650 mg Q6H PRN PO PAIN AND OR ELEVATED TEMP Last administered on 02/11/17 09:06; Admin Dose 650 MG; Start 02/10/17 at 17:00 Diphenhydramine HCl (Benadryl) 25 mg Q6H PRN PO ITCHING Last administered on 02:55; Admin Dose 25 MG; Start 02/11/17 at 03:00 NADIA VELAZQUEZ MD Feb 11, 2017 09:29
[2017-02-11] MEDS ORDERED: KETO10TA PO (09:30)
--- NOTE | 2017-02-11 09:34 | DS ---
Date/Time of Note Date/Time of Note DATE: 02/11/17 TIME: 09:34 Discharge Summary Admission/Discharge Info Admit Date/Time Feb 09, 2017 at 12:55 Discharge Date/Time 02/11/17 at 9:34 Discharge Diagnosis 1. Obstructing nephrolithiasis, 4 mm- resolved 2. Nonobstructing nephrolithiasis, 2 mm 3. Hematuria- resolved 4. Right flank pain- improving Patient Condition: Good Consults Urology Nephrology- Dr. Elijah Chamberlain of Present Illness Patient is a 41-year-old male with a past medical history of kidney stones who presents to [facility] for right flank pain, found to have obstructing kidney stone in the right ureter. Patient states that he was urinating blood last night and developed severe right-sided flank pain with nausea and vomiting. Patient states that the pain continued which is why he came to the ED. Patient has a history of kidney stones with lithotripsy in the past. Currently patient is pain-free, denies fever, chills, headache, dizziness , chest pain, shortness of breath. Hospital Course Patient was admitted and Urology was consulted. Initially conservative treatment was planned but with increase in pain patient was considered for lithotripsy. Patient fortunately passed the stone with IVF, Flomax and pain control. Patient was discharged in good condition with Toradol PRN for residual pain. No further episodes of hematuria as well. Home Meds Active Scripts Ketorolac Tromethamine* (Ketorolac Tromethamine*) 10 Mg Tablet, 10 MG PO TID Y for PAIN LEVEL 1-5, #10 TAB Prov:NADIA VELAZQUEZ MD 02/11/17 Reported Medications Diphenoxylate HCl/Atropine (Lomotil 2.5-0.025 mg Tablet) 1 Each Tablet, 1 TAB PO Q6H Y for DIARRHEA, TAB 02/09/17 Discontinued Reported Medications Ciprofloxacin Hcl* (Ciprofloxacin Hcl*) 500 Mg Tablet, 500 MG PO BID, #14 TAB 02/09/17 Follow-up Plan 1. Keep well hydrated and take Toradol as needed for pain 2. If flank pain returns, call your primary care or return to the ED Primary Care Provider Care Physician No Primary Time spent on discharge: > 30 minutes Pending Labs Laboratory Tests Test 02/11/17 04:44 White Blood Count 7.510^3/ul (4.8-10.8) Red Blood Count 3.7210^6/ul (4.70-6.10) Hemoglobin 11.9g/dl (14.0-18.0) Hematocrit 34.4% (42.0-52.0) Mean Corpuscular Volume 92.5fl (82.0-101.0) Mean Corpuscular Hemoglobin 32.0pg (29.0-33.0) Mean Corpuscular Hemoglobin Concent 34.6g/dl (32.0-37.0) Red Cell Distribution Width 12.0% (11.5-14.5) Platelet Count 99922^3/UL (140-415) Mean Platelet Volume 10.1fl (7.4-10.4) Neutrophils % 63.6% (39.0-77.0) Lymphocytes % 22.1% (15.0-51.0) Monocytes % 12.1% (0.0-11.0) Eosinophils % 1.5% (0.0-7.0) Basophils % 0.4% (0.0-2.0) Nucleated Red Blood Cells % 0.0/100WBC (0.0-0.0) Neutrophils # 4.810^3/ul (1.6-7.5) Lymphocytes # 1.710^3/ul (0.8-2.9) Monocytes # 0.910^3/ul (0.3-0.9) Eosinophils # 0.110^3/ul (0.0-0.5) Basophils # 0.010^3/ul (0.0-0.1) Nucleated Red Blood Cells # 0.010^3/ul (0.0-0.0) Sodium Level 136mmol/L (135-144) Potassium Level 4.4mmol/L (3.5-5.1) Chloride Level 108mmol/L (97-110) Carbon Dioxide Level 24mmol/L (21-31) Anion Gap 8 (8-16) Blood Urea Nitrogen 7mg/dl (7-20) Creatinine 0.98mg/dl (0.61-1.24) Glucose Level 86mg/dl (70-220) Calcium Level 9.1mg/dl (8.4-10.2) Phosphorus Level 3.3mg/dl (2.5-4.9) Magnesium Level 1.8mg/dl (1.7-2.5) NADIA VELAZQUEZ MD Feb 11, 2017 09:34 9.1mg/dl (8.4-10.2) Phosphorus Level 3.3mg/dl (2.5-4.9) Magnesium Level 1.8mg/dl (1.7-2.5) NADIA VELAZQUEZ MD Feb 11, 2017 09:34
--- NOTE | 2017-02-11 09:34 | PDOCDIS ---
Discharge Instructions DIAGNOSIS Discharge Diagnosis 1. Obstructing nephrolithiasis, 4 mm- resolved 2. Nonobstructing nephrolithiasis, 2 mm 3. Hematuria- resolved 4. Right flank pain- improving CONDITION Patient Condition: Good HOME CARE INSTRUCTIONS: Diet Instructions: RegularSpecial Diet: REGULARYour diet recommendation is: keep well hydrated ACTIVITY: Activity Restrictions: Slowly Increase Activity Rest between Activity Avoid heavy lifting Bathing Restrictions: Shower FOLLOW UP/APPOINTMENTS Follow-up Plan 1. Keep well hydrated and take Toradol as needed for pain 2. If flank pain returns, call your primary care or return to the ED SCHOOL/WORK RELEASE May return to School/Work on: Feb 12, 2017 May return to School/Work with: No Restrictions NADIA VELAZQUEZ MD Feb 11, 2017 09:33
[2017-02-13 12:30] LABS: SPECIMEN SOURCE Kidney
== END 2017-02-11 10:14 | disposition home or self-care (01) | DRG 694 ==
LOC: E/R 07:21 → MS1 12:55
PROVIDERS: ADMIT Hospitalist; ATTEND Hospitalist
DX: N20.0 Calculus of kidney (principal); N17.9 Acute kidney failure, unspecified; Z72.0 Tobacco use; F12.90 Cannabis use, unspecified, uncomplicated
CPT/HCPCS: 36415; 74176; 80048; 80053; 80061; 81001; 82355; 83690; 83735; 84100; 85025; 86140; 87086; 96374; 96375; 96376; C9113; J1170; J1885; J2405; J3010; J7030